=== PATIENT | male | born 1970 | race Caucasian/White ===

== ENCOUNTER 2016-11-22 16:30 | Emergency (ER) | payer OTHER ==
[~2016-11-22] VITALS: Ht 177.8 cm; Wt 70.0 kg
[~2016-11-22 16:30] MED LIST: ZOFR4TAB3 PO
[2016-11-22 16:48] VITALS: BP 116/71; PULSE 106; RESP 20; TEMP 99.3; O2SAT 98
--- NOTE | 2016-11-22 18:01 | RADRPT ---
EXAM DATE/TIME: 11/22/2016 17:48 [facility] COMPARISON: No previous studies available for comparison. INDICATIONS : Right wrist pain, unknown injury. MEDICAL HISTORY : None. SURGICAL HISTORY : None. ENCOUNTER: Initial ACUITY: 1 day PAIN SCORE: 10/10 LOCATION: Right wrist. FINDINGS: Three view examination of the right wrist demonstrates no soft tissue swelling, dislocation, or fract ure. The carpal bones are in normal alignment. The joint spaces are maintained. Bony mineralizatio n is normal. CONCLUSION: Normal right wrist radiographs. José Miguel Newberry MD on November 22, 2016 at 18:00 Board Certified Radiologist. This report was verified electronically.
--- NOTE | 2016-11-22 18:01 | RADRPT ---
EXAM DATE/TIME: 11/22/2016 17:44 [facility] COMPARISON: No previous studies available for comparison. INDICATIONS : Right hand pain, unknown injury. MEDICAL HISTORY : None. SURGICAL HISTORY : None. ENCOUNTER: Initial ACUITY: 1 day PAIN SCORE: 10/10 LOCATION: Right hand. FINDINGS: Three view examination of the right hand demonstrates no soft tissue swelling, dislocation, or fractu re. The carpal bones appear intact. The interphalangeal and metacarpophalangeal joints are intact. Bony mineralization is normal. CONCLUSION: Normal right hand radiographs. José Miguel Newberry MD on November 22, 2016 at 17:59 Board Certified Radiologist. This report was verified electronically.
--- NOTE | 2016-11-22 18:10 | PD ---
HPI Chief Complaint: Alcohol/Drug Intoxication Time Seen by Provider: 18:01 Travel History International Travel<30 days: No Contact w/Intl Traveler<30days: No Traveled to known affect area: No History of Present Illness HPI 46- year old male brought to the ED by [facility] due to alcohol intoxication complaining of right hand pain. The patient states it started yesterday when he was trimming the hedges for about 6-7 hours yesterday. Patient report his hand feels as if it is "falling asleep." He reports weakness to the right hand and that he is unable to flex his hand. He denies any falls. He is also complaining of right foot edema due to a water moccasin bite a few days ago on his right big toe. He reports he went to a different hospital and was given antibiotics, antivenom, and a tetanus shot. He reports he has not been compliant with his antibiotics, with has last dose being a few days ago. 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) Psychiatric: Yes Reproductive: No Respiratory: No Immunizations Current: Yes Pneumonia: Yes Ulcer: Yes Past Surgical History Surgical History: No Previous Surgery Oral Surgery: Yes Other Surgery: Yes (dental surgery ) Social History Alcohol Use: Yes (10+ 4 [facility](11/22/16)) Tobacco Use: Yes Substance Use: Yes (MDMA, mushrooms, 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) Allergies-Medications (Allergen,Severity, Reaction): Coded Allergies: Penicillin (Verified Allergy, Severe, RASH, 11/22/16) Sulfa (Verified Allergy, Severe, throat and eyes swell up, 11/22/16) Sudafed (Verified Allergy, Intermediate, Tachycardia, 11/22/16) Zyvox (Unverified Allergy, Mild, 11/22/16) Reported Meds & Prescriptions Reported Meds & Active Scripts Active No Active Prescriptions or Reported Medications Review of Systems General / Constitutional: No: Fever, Chills, Weight Gain, Weight Loss, Other Eyes: No: Diploplia, Blurred Vision, Photophobia, Drainage, Redness, Foreign Body Sensation, Pain, Tearing, Blind Spots, Visual changes, Blindness, Other HENT: No: Headaches, Vertigo, Lightheadedness, Sore Throat, Rhinitis, Rhinorrhea, Congestion, Nosebleed, Neck Stiffness, Neck Pain, Masses, Gingival Bleeding, Dental Difficulties, Ear Discharge, Earache, Other Cardiovascular: No: Chest Pain or Discomfort, Palpitations, Irregular Rhythm, Tachycardia, Diaphoresis, Syncope, Dyspnea on exertion, Varicosities, Edema, Cyanosis, Varicosities, Phlebitis, Claudication, Other Respiratory: No: Cough, Shortness of Breath, Wheezing, Sneezing, Orthopnea, Hemoptysis, Stridor, Night Sweats, Pleuritic Pain, Other Gastrointestinal: No: Nausea, Vomiting, Diarrhea, Abdominal Pain, Hematemesis, Hematochezia, Constipation, Changes in Bowel Habits, Indigestion, Dysphagia, Loss of Appetite, Other Genitourinary: No: Urgency, Frequency, Dysuria, Nocturia, Hematuria, Decreased Urinary Output, Oliguria, Hesitancy, Dribbling, Incontinence, Pelvic Pain, Flank Pain, Dyspareunia, Discharge, Dysmenorrhea, Menorrhagia, Metorrhagia, Vaginal Bleeding, Other Musculoskeletal: Positive: Myalgias (right hand pain, right great toe pain), Pain, No: Arthralgias, Limited ROM, Weakness, Cramping, Edema, Atrophy, Other Skin: Positive Other (bite to right big toe), No Rash, No Itching, No Dryness, No Lumps, No Hives, No Change in Pigmentation, No Change in nails, No Alopecia, No Lesions, No Breast Lumps, No Breast Tenderness, No Breast Swelling Neurologic: No: Weakness, Dizziness, Syncope, Focal Abnormalities, Coordination Problem, Tremor, Ataxia, Headache, Change in Mentation, Slurred Speech, Paresthesia, Incontinence, Seizures, Sensory Disturbance, Other Psychiatric: Positive: Substance Abuse Endocrine: No: Heat Intolerance, Cold Intolerance, Polyuria, Polydipsia, Other Hematologic/Lymphatic: No: Easy Bruising, Lymph Node Enlargement, Other Physical Exam Narrative GENERAL: SKIN: Warm and dry. HEAD: Atraumatic. Normocephalic. EYES: Pupils equal and round. No scleral icterus. No injection or drainage. ENT: No nasal bleeding or discharge. Mucous membranes pink and moist. NECK: Trachea midline. No JVD. CARDIOVASCULAR: Regular rate and rhythm. RESPIRATORY: No accessory muscle use. Clear to auscultation. Breath sounds equal bilaterally. GASTROINTESTINAL: Abdomen soft, non-tender, nondistended. Hepatic and splenic margins not palpable. MUSCULOSKELETAL: Right hand weakness compared to left. Unable to flex right hand. Puncture to right great toe. Extremities without clubbing, cyanosis, or edema. No obvious deformities. NEUROLOGICAL: Awake and alert. No obvious cranial nerve deficits. Motor grossly within normal limits. Five out of 5 muscle strength in the arms and legs. Normal speech. PSYCHIATRIC: Appropriate mood and affect; insight and judgment normal. Data Data Last Documented VS Vital Signs Date Time Temp Pulse Resp B/P Pulse Ox O2 Delivery O2 Flow Rate FiO2 11/22/16 16:48 99.3 106 20 116/71 98 Room Air Orders Wrist, Complete ([id number]) (11/22/16 ) Hand, Complete ([id number]) (11/22/16 ) Splint Or Brace Apply/Monitor (11/22/16 17:31) Ketorolac Inj (Toradol Inj) (11/22/16 18:45) MDM Medical Decision Making Medical Screen Exam Complete: Yes Emergency Medical Condition: Yes Medical Record Reviewed: Yes Interpretation(s) Last Impressions Wrist X-Ray 11/22/16 0000 Signed Impressions: Service Date/Time: Tuesday, November 22, 2016 17:48 - CONCLUSION: Normal right wrist radiographs. José Miguel Newberry MD Hand X-Ray 11/22/16 0000 Signed Impressions: Service Date/Time: Tuesday, November 22, 2016 17:44 - CONCLUSION: Normal right hand radiographs. José Miguel Newberry MD Differential Diagnosis Alcohol Intoxication Fracture to right hand Abrasion to right hand Narrative Course 46-year-old male that presents to the ED for evaluation of alcohol intoxication. Patient was properly examined and was found to have signs and symptoms consistent with alcohol intoxication. No sign of acute medical distress. Patient does complain of some right arm neuropathy which appears to be likely from overuse. No sign of acute central neurological deficit. I believe that this is likely peripheral likely from overuse and possibly from sleeping wrong on the arm. Patient will be put on a brace. Case will be signed out to Simona Hair PA-C pending medical clearance Diagnosis Primary Impression: Alcohol intoxication Qualified Code: F10.920 - Alcoholic intoxication without complication Additional Impression: Neuropathy, arm Qualified Code: G56.91 - Neuropathy of right upper extremity Scripts No Active Prescriptions or Reported Meds Adolph Medina Nov 22, 2016 18:10
[2016-11-22] MEDS ORDERED: KETOROLAC TROMETHAMINE 60 MG/2 ML (IM) VIAL IM ONE (18:45)
[2016-11-22 21:42] VITALS: BP 105/70; PULSE 60; RESP 14; O2SAT 99
--- NOTE | 2016-11-22 21:59 | PD ---
Physical Exam Date Seen by Provider: Nov 22, 2016 Time Seen by Provider: 21:57 Data Data Last Documented VS Vital Signs Date Time Temp Pulse Resp B/P Pulse Ox O2 Delivery O2 Flow Rate FiO2 11/22/16 21:42 60 14 105/70 99 Room Air 11/22/16 16:48 99.3 Orders Wrist, Complete ([id number]) (11/22/16 ) Hand, Complete ([id number]) (11/22/16 ) Splint Or Brace Apply/Monitor (11/22/16 17:31) Ketorolac Inj (Toradol Inj) (11/22/16 18:45) [facility] Supervised Visit with YULISSA: No Narrative Course Patient was initially seen by Adolph Medina PA-C. Please see his note for details. On my exam: GENERAL: Well-nourished, well-developed intoxicated white male in no acute distress. SKIN: Focused skin assessment warm/dry. HEAD: Normocephalic. EYES: No scleral icterus. No injection or drainage. NECK: Supple, trachea midline. No JVD or lymphadenopathy. CARDIOVASCULAR: Regular rate and rhythm without murmurs, gallops, or rubs. RESPIRATORY: Breath sounds equal bilaterally. No accessory muscle use. GASTROINTESTINAL: Abdomen soft, non-tender, nondistended. MUSCULOSKELETAL: No cyanosis, or edema. His right hand is in a Velcro brace. BACK: Nontender without obvious deformity. No CVA tenderness. Patient will be allowed to sleep it off, reevaluated and discharged when sober. He is instructed to seek outpatient treatment for his chronic alcoholism and orthopedic follow-up for his arm pain. Diagnosis Primary Impression: Alcohol intoxication Qualified Code: F10.920 - Alcoholic intoxication without complication Additional Impression: Neuropathy, arm Qualified Code: G56.91 - Neuropathy of right upper extremity Referrals: [facility] (Out patient) Additional Instruction: Seek outpatient treatment for your chronic alcoholism. Follow-up with the orthopedist should symptoms persist in the right hand. Return to the ED for any urgent or emergent medical condition. Scripts No Active Prescriptions or Reported Meds Disposition: 01 DISCHARGE HOME Condition: Stable Simona Hair Nov 22, 2016 21:59
== END 2016-11-23 04:29 | disposition home or self-care (01) ==
LOC: NEDAMB 16:30 → NEPC 11-23 04:29
DX: F10.920 Alcohol use, unspecified with intoxication, uncomplicated (principal); G56.91 Unspecified mononeuropathy of right upper limb; R60.0 Localized edema; I10 Essential (primary) hypertension; Z72.0 Tobacco use; Z87.09 Personal history of other diseases of the respiratory system; Z86.59 Personal history of other mental and behavioral disorders; Z86.79 Personal history of other diseases of the circulatory system; Z87.39 Personal history of other diseases of the musculoskeletal system and connective tissue
CPT/HCPCS: 73110; 73130; 96372; 99284; J1885; L3908